=== PATIENT | female | born 1955 | race Caucasian/White ===

== ENCOUNTER 2019-05-30 11:48 | Emergency (ER) | payer BC ==
[~2019-05-30] VITALS: Ht 157.5 cm; Wt 48.1 kg
[2019-05-30 12:00] VITALS: BP 134/84
--- NOTE | 2019-05-30 12:00 | NUR ---
ED Nurse Note: Patient walked in to ER c/o high BP, stated feels not right. Patient's BP 134/84 at triage. AAO x4, VSS at this time.
--- NOTE | 2019-05-30 12:20 | NUR ---
ED Nurse Note: Pt cleared by health care Provider for discharge. DC instructions/prescription was given and explained to pt and verbalized understanding of teachings. All medical deviecs such as ID band removed. Pt is AAO x4, ambulatory and left with all personal belongings.
[2019-05-30 12:21] VITALS: BP 134/84
--- NOTE | 2019-06-01 20:06 | Emergency Room Report ---
History of Present Illness General Chief Complaint: Hypertension Source: Patient Present Illness HPI Patient is a 64-year-old female presents after increased high blood pressure.Patient reports having wanted to check her blood pressure. Denies any current symptoms. Denies any chest discomfort or shortness of breath. Reports feeling somewhat anxious. Denies any prior history of diabetes does not take medications currently. Patient denies any fever. Allergies: Coded Allergies: PENICILLINS (Verified Allergy, Unknown, 05/30/19) COVID-19 Screening Contact w/high risk pt: No Recent Travel to affected area: No Experienced COVID-19 symptoms?: No Patient History Past Medical History: see triage record Now: No Reviewed Nursing Documentation: PMH: Agreed; PSxH: Agreed Nursing Documentation-PMH Past Medical History: No Stated History Review of Systems All Other Systems: negative except mentioned in HPI Physical Exam Vital Signs Date Time Temp Pulse Resp B/P (MAP) Pulse Ox O2 Delivery O2 Flow Rate FiO2 05/30/19 11:57 98.2 70 18 134/84 (101) 98 Room Air General Appearance: well appearing, no apparent distress, alert, GCS 15 Head: normocephalic, atraumatic ENT: hearing grossly normal, normal voice Neck: full range of motion, supple Respiratory: chest non-tender, lungs clear, no respiratory distress, speaking full sentences Gastrointestinal: normal inspection Musculoskeletal: no calf tenderness Neurologic: alert, motor strength/tone normal, protective services case worker III-XII nml as tested, oriented x3, normal gait Psychiatric: mood/affect normal Skin: no rash Medical Decision Making Diagnostic Impression: Primary Impression: Hypertension ER Course Patient presented for hypertension. Differential diagnosis includes not limited to hypertension, anxiety, among others. Patient has a benign exam and does not appear to require any imaging or laboratory testing at this time. Patient denies any symptoms related to blood pressure. Patient was offered medications for anxiety which she declined. Patient appears to be stable for outpatient management and follow-up with primary care physician. The patient is advised to follow up with primary care doctor in 1-2 days. Patient is advised to return if any worsening condition or if any changes in status that are concerning. This report is dictated with [employer] operations manager software which may occasionally lead to discrepancies related to use of this software. Last Vital Signs Date Time Temp Pulse Resp B/P (MAP) Pulse Ox O2 Delivery O2 Flow Rate FiO2 05/30/19 12:21 98.2 18 134/84 98 Room Air 05/30/19 12:00 70 Status: improved Disposition: HOME, SELF-CARE Condition: Stable Referrals: NON PHYSICIAN (PCP) Patient Instructions: Hypertension Additional Instructions: Follow up with your doctor. Return if any new symptoms or concerns. Ray Lai MD Jun 01, 2019 20:06
== END 2019-05-30 12:20 | disposition home or self-care (01) ==
LOC: EMR 12:20
DX: I10 Essential (primary) hypertension (principal); Z88.0 Allergy status to penicillin
CPT/HCPCS: 99281